=== PATIENT | female | born 1980 | race Caucasian/White ===

== ENCOUNTER 2016-05-05 21:10 | Emergency (ER) | payer OTHER, MEDICAID ==
[2016-05-05 21:23] VITALS: BP 113/73
[2016-05-05] MEDS ORDERED: Oseltamivir CAP* 75 MG PO ONE (22:00)
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
== END 2016-05-05 22:20 | disposition home or self-care (01) ==
LOC: UCEAST 21:10
DX: J11.1 Influenza due to unidentified influenza virus with other respiratory manifestations (principal); Z88.0 Allergy status to penicillin; Z87.891 Personal history of nicotine dependence; R10.9 Unspecified abdominal pain
CPT/HCPCS: 81002; 87086; 87502; 87651; 99212; A9270-GY; G0463

== ENCOUNTER 2016-09-09 02:33 | Inpatient (IN) | payer OTHER, MEDICAID ==
[2016-09-09] MEDS ORDERED: Sodium Citrate/Citric Acid* 15 ML UDC ONE (06:27)
[2016-09-09] MEDS ORDERED: ceFAZolin 2 GM PREMIX(*) 2 GM/50 ML BAG IVPB ONE (06:28)
[2016-09-09] MEDS ORDERED: Morphine PF AMP (0.5MG/ML)* 5 MG/10 ML AMP ONE (07:43)
[2016-09-09] MEDS ORDERED: Ondansetron INJ* 2 MG/ML VIAL ONE (07:46)
[2016-09-09] MEDS ORDERED: Ketorolac INJ* 30 MG/ML 1 ML VIAL ONE (07:46)
[2016-09-09] MEDS ORDERED: OXYTOCIN* 10 UNITS/ML 1 ML VIAL ONE (07:46)
[2016-09-09] MEDS ORDERED: DiMENhydriNATE IV* 50 MG/ML VIAL IV PUSH PRN (08:45)
[2016-09-09] MEDS ORDERED: HYDROmorphone* 1 MG/ML 1 ML SYR IV PRN (08:45)
[2016-09-09] MEDS ORDERED: oxyCODONE TAB* 5 MG TAB PO PRN (08:45)
[2016-09-09] MEDS ORDERED: Acetaminophen IV 1GM/100ML * 100 ML IVPB ONE (08:45)
[2016-09-09] MEDS ORDERED: Nalbuphine* 20 MG/ML 1 ML VIAL IV PRN (08:46)
[2016-09-09] MEDS ORDERED: Naloxone* 0.4 MG/ML 1 ML VIAL IV PRN (08:46)
[2016-09-09] MEDS ORDERED: Ondansetron INJ* 2 MG/ML VIAL IV PRN (08:46)
[2016-09-09] MEDS ORDERED: Witch Hazel PAD* JAR TOPICAL PRN (09:38)
[2016-09-09] MEDS ORDERED: Ibuprofen TAB* 600 MG PO PRN (09:38)
[2016-09-09] MEDS ORDERED: Glycerin ADULT SUPP PR PRN (09:38)
[2016-09-09] MEDS ORDERED: Dibucaine 1% 28.35 GM TUBE PR PRN (09:38)
[2016-09-09] MEDS ORDERED: Acetaminophen TAB* 325 MG PO PRN (09:38)
[2016-09-09] MEDS ORDERED: oxyCODONE TAB* 5 MG TAB ONE (10:46)
[2016-09-09] MEDS ORDERED: Ibuprofen TAB* 600 MG ONE (10:47)
[2016-09-09] MEDS ORDERED: Nalbuphine* 20 MG/ML 1 ML VIAL ONE (10:48)
[2016-09-09] MEDS: oxyCODONE/Acetamin 5/325 MG* TAB PO PRN ×4 (11:49→23:44)
[2016-09-09] MEDS: Nicotine Lozenge* 4 MG LOZENGE MT PRN ×4 (11:53→22:30)
[2016-09-09] MEDS: Simethicone CHEW TAB* 80 MG PO SCH ×3 (12:13→19:48)
[2016-09-09] MEDS: Docusate CAP* 100 MG PO SCH ×2 (13:53→19:48)
[2016-09-09] MEDS: Ibuprofen TAB* 600 MG PO SCH ×2 (17:15→23:44)
[2016-09-10] MEDS ORDERED: oxyCODONE/Acetamin 5/325 MG* TAB PO PRN
[2016-09-10] MEDS ORDERED: Zolpidem TAB* 5 MG PO PRN
[2016-09-10] MEDS: Nicotine Lozenge* 4 MG LOZENGE MT PRN ×3 (04:36→21:57)
[2016-09-10] MEDS: oxyCODONE/Acetamin 5/325 MG* TAB PO PRN ×6 (04:36→23:39)
--- NOTE | 2016-09-10 05:20 | OP ---
DATE OF OPERATION: 09/09/16 - ROOM #[id number] DATE OF : 82 SURGEON: Ruth Devries MD DIRECTOR OF ADMISSIONS: Vianney Phillips LM ANESTHESIOLOGIST: Mercedes Silverman MD ANESTHESIA: Spinal PRE-OP DIAGNOSIS: Di/Di twin intrauterine gestation at 37 and 6 weeks gestational age. Baby A in breech presentation. POST-OP DIAGNOSIS: Di/Di twin intrauterine gestation at 37 and 6 weeks gestational age. Baby A in breech presentation. OPERATIVE PROCEDURE: Primary low transverse section. ESTIMATED BLOOD LOSS: 700 mL. FLUIDS: Crystalloid. FINDINGS: Baby A female , Apgars of 9 and 9, weight 5 pounds 6 ounces. Baby B female , Apgars 9 and 9, weight 4 pounds 13 ounces. Normal appearing placenta. Normal appearing uterus, ovaries and tubes. DESCRIPTION OF PROCEDURE: After informed consent was signed, the patient was taken to the operating room where she was given a spinal anesthesia that was later found to be adequate. A Alvarado catheter was introduced into her bladder. SCDs were placed on her legs. She was then prepped and draped in the dorsal supine position with a leftward tilt. A time-out was performed. A Pfannenstiel skin incision was then made with a scalpel and carried down to the underlying layer of fascia with the scalpel. The fascia was incised on either side of the midline and the fascial incision extended laterally with Valdovinos scissors. The inferior edge of the fascial incision was grasped with Lyndsey clamps, tented up, and dissected down with sharp dissection. Then, the superior edge of the fascial incision was grasped with Lyndsey clamps, tented up , and dissected down with sharp dissection with Valdovinos scissors. The rectus muscles were in the midline and the peritoneum was entered bluntly. The peritoneal incision was extended laterally with blunt pressure. A bladder blade was inserted and a transverse incision was made in the lower uterine segment with the scalpel. The uterine incision was extended superiorly and inferiorly with blunt pressure. Baby A was found to be in breech presentation. The buttocks were delivered followed by the legs and torso and then the arms rotated internally, finally followed by the delivery of the head in a flexed presentation. The cord was milked towards the baby and then clamped x2 and cut , and the baby was handed to the air table operator. The baby B was found to be in complete breech presentation. The feet were then grasped and brought to the incision and delivered, followed by the body. Arms internally rotated and the head in a flexed presentation. The cord was milked towards the baby and then clamped x2 and cut, and the baby was handed to the air table operator. The placentas were then delivered with fundal massage and gentle cord traction. The uterus was exteriorized and cleared of clots and debris. The uterine incision was then closed with 0 Vicryl in a running locked fashion with a second layer of suture imbricating the first. The abdomen was irrigated and the uterus was placed back in the abdominal cavity. The incision was inspected and good hemostasis was noted. The peritoneum was closed with 3-0 chromic in a running unlocked fashion. The fascia was closed with 0 Vicryl in a running unlocked fashion. Good hemostasis was noted in the subcuticular layer and two interrupted sutures of 3-0 Chromic were placed to reapproximate the subcuticular layer. The skin was then closed with 4-0 Monocryl in a running subcuticular fashion. The incision was cleaned. Mastisol and Steri- Strips were placed. The dressing was placed. The patient was then moved to the stretcher, and taken to the recovery room in stable condition. [id number]/[facility] #: [id number] FABIAN
[2016-09-10] MEDS: Ibuprofen TAB* 600 MG PO PRN ×3 (06:20→19:36)
[2016-09-10 07:03] LABS: Hematocrit 32 % (35-47); Hemoglobin 10.6 g/dl (12.0-16.0); Mean Corpuscular HGB Conc 33 g/dl (31-36); Mean Corpuscular Hemoglobin 27 pg (27-31); Mean Corpuscular Volume 83 fL (80-97); Mean Platelet Volume 10 um3 (7.4-10.4); Red Blood Count 3.91 10^6/ul (4.0-5.4); Red Cell Distribution Width 14 % (10.5-15); White Blood Count 13.7 10^3/ul (3.5-10.8)
[2016-09-10 07:13] LABS: Add Diff/Slide Review? Slide Review Added; Comments Flag Yes
[2016-09-10 08:08] LABS: Platelet Morphology Large; RBC Morphology Normal (Normal)
[2016-09-10] MEDS: Simethicone CHEW TAB* 80 MG PO SCH ×4 (08:39→20:51)
[2016-09-10] MEDS: Docusate CAP* 100 MG PO SCH ×3 (08:40→20:51)
[2016-09-10] MEDS ORDERED: Ferrous Gluconate TAB* 324 MG TAB PO SCH (09:00)
[2016-09-10] MEDS: Famotidine TAB* 20 MG PO SCH (20:51)
[2016-09-11] MEDS: Ibuprofen TAB* 600 MG PO PRN ×3 (01:36→16:09)
[2016-09-11] MEDS: oxyCODONE/Acetamin 5/325 MG* TAB PO PRN ×2 (05:17→19:43)
[2016-09-11] MEDS: Simethicone CHEW TAB* 80 MG PO SCH ×4 (07:49→21:04)
[2016-09-11] MEDS: Nicotine Lozenge* 4 MG LOZENGE MT PRN ×3 (07:49→21:03)
[2016-09-11] MEDS: Docusate CAP* 100 MG PO SCH ×3 (09:51→21:04)
[2016-09-11] MEDS: Famotidine TAB* 20 MG PO SCH ×2 (09:51→21:04)
[2016-09-11] MEDS: Gabapentin CAP(*) 300 MG PO SCH ×2 (14:59→21:03)
[2016-09-12] MEDS: Ibuprofen TAB* 600 MG PO PRN ×2 (00:01→08:38)
[2016-09-12] MEDS: oxyCODONE/Acetamin 5/325 MG* TAB PO PRN ×3 (00:59→12:40)
[2016-09-12 06:27] VITALS: BP 138/71
[2016-09-12] MEDS: Docusate CAP* 100 MG PO SCH (08:38)
[2016-09-12] MEDS: Famotidine TAB* 20 MG PO SCH (08:39)
[2016-09-12] MEDS: Nicotine Lozenge* 4 MG LOZENGE MT PRN (08:39)
[2016-09-12] MEDS: Simethicone CHEW TAB* 80 MG PO SCH (08:39)
[2016-09-12] MEDS: Gabapentin CAP(*) 300 MG PO SCH (08:40)
== END 2016-09-12 13:11 | disposition home or self-care (01) | DRG 765 ==
LOC: UNDOADMIN 02:33 → MCHOB 02:33
PROVIDERS: ADMIT Obstetrics & Gynecology; ATTEND Obstetrics & Gynecology
PROC: 10D00Z1 Extraction of Products of Conception, Low, Open Approach (ICD-10-PCS; principal; 2016-09-09 07:45)
DX: O32.1XX1 Maternal care for breech presentation, fetus 1 (principal); O30.043 Twin pregnancy, dichorionic/diamniotic, third trimester; Z37.2 Twins, both liveborn; O32.1XX2 Maternal care for breech presentation, fetus 2; O99.824 Streptococcus B carrier state complicating childbirth; Z3A.37 37 weeks gestation of pregnancy
CPT/HCPCS: 36415; 76815; 85025; A9270-GY; J0690; J1240; J1885; J2300; J2405; J2590

== ENCOUNTER 2017-01-09 04:07 | Emergency (ER) | payer OTHER, MEDICAID ==
[2017-01-09] MEDS ORDERED: Ibuprofen TAB* 600 MG ONE (04:42)
[2017-01-09] MEDS ORDERED: Ibuprofen TAB* 600 MG PO ONE (04:42)
[2017-01-09] MEDS ORDERED: traMADol TAB* 50 MG ONE (06:14)
[2017-01-09] MEDS ORDERED: traMADol TAB* 50 MG PO ONE (06:14)
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
[2017-01-09 07:06] VITALS: BP 119/87
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
== END 2017-01-09 07:09 | disposition home or self-care (01) ==
LOC: ED 04:07
DX: S13.9XXA Sprain of joints and ligaments of unspecified parts of neck, initial encounter (principal); R10.9 Unspecified abdominal pain; R51 Headache; R07.9 Chest pain, unspecified; M54.9 Dorsalgia, unspecified; M54.2 Cervicalgia; M25.532 Pain in left wrist; M25.531 Pain in right wrist; F17.210 Nicotine dependence, cigarettes, uncomplicated; Y09 Assault by unspecified means; Y93.9 Activity, unspecified; Y92.9 Unspecified place or not applicable
CPT/HCPCS: 70450; 72050; 99283; A9270-GY

== ENCOUNTER 2017-01-10 23:53 | Emergency (ER) | payer OTHER, MEDICAID ==
[2017-01-11] MEDS ORDERED: Ondansetron ODT TAB* 4 MG PO ONE (02:14)
[2017-01-11 02:24] VITALS: BP 136/80
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
== END 2017-01-11 02:23 | disposition home or self-care (01) ==
LOC: ED 23:53
DX: S06.0X9A Concussion with loss of consciousness of unspecified duration, initial encounter (principal); R51 Headache; R05 Cough; H53.8 Other visual disturbances; R11.2 Nausea with vomiting, unspecified; F17.210 Nicotine dependence, cigarettes, uncomplicated; Y09 Assault by unspecified means; Y93.9 Activity, unspecified; Y92.9 Unspecified place or not applicable; Z33.1 Pregnant state, incidental
CPT/HCPCS: 99282

== ENCOUNTER 2017-06-07 14:54 | Emergency (ER) | payer OTHER ==
[2017-06-07 15:28] VITALS: BP 131/76
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
== END 2017-06-07 16:06 | disposition home or self-care (01) ==
LOC: UCEAST 14:54
DX: R22.0 Localized swelling, mass and lump, head (principal); R51 Headache; F17.210 Nicotine dependence, cigarettes, uncomplicated; Z88.3 Allergy status to other anti-infective agents
CPT/HCPCS: 99212; G0463

== ENCOUNTER → 2017-06-07 17:05 | Emergency (ER) | payer OTHER ==
[~2017-06-07 17:05] MED LIST: Clindamycin CAP* 150 MG PO ONE; Iohexol 300* (CONTRAST) 10 ML SDV IV ONE
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
[2017-06-07 18:42] LABS: ABS Basophils 0.1 10^3/ul (0-0.2); ABS Eosinophils 0.1 10^3/ul (0-0.6); ABS Lymphocytes 1.9 10^3/ul (1.0-4.8); ABS Monocytes 0.5 10^3/ul (0-0.8); ABS Neutrophils 6.5 10^3/ul (1.5-7.7); ABS Nucleated RBC 0 10^3/ul; Eosinophil % 1.2 % (0-6); Hematocrit 46 % (35-47); Hemoglobin 15.5 g/dl (12.0-16.0); Lymphocyte % 21.1 % (25-47); Mean Corpuscular HGB Conc 34 g/dl (31-36); Mean Corpuscular Hemoglobin 30 pg (27-31); Mean Corpuscular Volume 88 fL (80-97); Mean Platelet Volume 8 um3 (7.4-10.4); Nucleated Red Blood Cells % 0; Platelet Count 328 10^3/ul (150-450); Red Blood Count 5.21 10^6/ul (4.0-5.4); Red Cell Distribution Width 15 % (10.5-15)
[2017-06-07 19:02] LABS: EGFR Non-African American 101.9 (>60)
--- NOTE | 2017-06-07 20:02 | RAD ---
HISTORY: Left-sided facial swelling COMPARISONS: None TECHNIQUE: Multiple contiguous axial CT scans were obtained of the face with intravenous contrast, with coronal and sagittal multiplanar reformations. FINDINGS: BONES: There is no displaced fracture or dislocation. The orbital rim is intact. The zygomatic arch is intact. The pterygoid plates are intact. ORBITS: The globes are round. The optic nerves are symmetric. The extraocular musculature is normal. There is no post septal or intraconal inflammatory change. There is no retrobulbar hematoma. PARANASAL SINUSES: The paranasal sinuses are clear. BRAIN AND SOFT TISSUE: There is straightening of the subcutaneous fat along the left mandibular body. There is no appreciable loculated fluid collection. OTHER: None. IMPRESSION: THERE IS INFLAMMATORY CHANGE ALONG THE LEFT MANDIBLE, SUGGESTIVE OF CELLULITIS, WITHOUT LOCULATED FLUID COLLECTION TO SUGGEST ABSCESS
[2017-06-07 20:41] VITALS: BP 142/87
== END | disposition home or self-care (01) ==
LOC: ED 17:05
DX: K11.5 Sialolithiasis (principal); R22.0 Localized swelling, mass and lump, head; Z32.02 Encounter for pregnancy test, result negative; Z87.442 Personal history of urinary calculi; F41.9 Anxiety disorder, unspecified; F32.9 Major depressive disorder, single episode, unspecified; Z88.1 Allergy status to other antibiotic agents; F17.210 Nicotine dependence, cigarettes, uncomplicated
CPT/HCPCS: 36415; 70487; 80053; 84702; 85025; 99282; A9270-GY; Q9967

== ENCOUNTER 2017-08-23 17:28 | Emergency (ER) | payer OTHER ==
[2017-08-23 17:40] VITALS: BP 137/74
[2017-08-23] MEDS ORDERED: Azithromycin TAB* 250 MG PO ONE (17:45)
[2017-08-23] MEDS ORDERED: Ondansetron ODT TAB* 4 MG PO ONE (17:46)
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
== END 2017-08-23 18:00 | disposition home or self-care (01) ==
LOC: UCEAST 17:28
DX: N89.8 Other specified noninflammatory disorders of vagina (principal); Z20.2 Contact with and (suspected) exposure to infections with a predominantly sexual mode of transmission; F98.8 Other specified behavioral and emotional disorders with onset usually occurring in childhood and adolescence; F32.9 Major depressive disorder, single episode, unspecified; Z88.0 Allergy status to penicillin; Z82.49 Family history of ischemic heart disease and other diseases of the circulatory system; Z83.3 Family history of diabetes mellitus; Z80.9 Family history of malignant neoplasm, unspecified; F17.210 Nicotine dependence, cigarettes, uncomplicated
CPT/HCPCS: 99212; A9270-GY; G0463

== ENCOUNTER 2017-10-21 10:25 | Emergency (ER) | payer OTHER ==
[2017-10-21 10:31] VITALS: BP 125/80
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
== END 2017-10-21 11:50 | disposition home or self-care (01) ==
LOC: UCEAST 10:25
DX: K11.20 Sialoadenitis, unspecified (principal); Z88.0 Allergy status to penicillin; F17.210 Nicotine dependence, cigarettes, uncomplicated
CPT/HCPCS: 87651; 99212; G0463

== ENCOUNTER 2018-02-19 17:54 | Emergency (ER) | payer OTHER ==
[2018-02-19 18:02] VITALS: BP 122/69
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
[2018-02-19] MEDS ORDERED: Neomyc/Polym/HC 1% OTIC SUSP* **OTIC LEFT EAR ONE (18:12)
[2018-02-19] MEDS ORDERED: Ibuprofen TAB* 400 MG PO ONE (18:14)
== END 2018-02-19 18:26 | disposition home or self-care (01) ==
LOC: UCEAST 17:54
DX: H60.92 Unspecified otitis externa, left ear (principal); H92.02 Otalgia, left ear; Z88.0 Allergy status to penicillin; F17.210 Nicotine dependence, cigarettes, uncomplicated
CPT/HCPCS: 99212; A9270-GY; G0463

== ENCOUNTER 2018-04-02 20:11 | Emergency (ER) | payer OTHER ==
[2018-04-02 20:20] VITALS: BP 141/81
[2018-04-02] MEDS ORDERED: Neomyc/Polym/HC 1% OTIC SUSP* **OTIC LEFT EAR ONE (20:26)
[2018-04-02] MEDS ORDERED: Cephalexin CAP* 500 MG PO ONE (20:27)
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
== END 2018-04-02 20:33 | disposition home or self-care (01) ==
LOC: UCEAST 20:11
DX: H66.92 Otitis media, unspecified, left ear (principal); Z88.0 Allergy status to penicillin; Z88.1 Allergy status to other antibiotic agents; F17.290 Nicotine dependence, other tobacco product, uncomplicated
CPT/HCPCS: 99212; A9270-GY; G0463

== ENCOUNTER 2018-06-02 10:34 | Emergency (ER) | payer SELFPAY ==
--- OUTSIDE RECORDS SUMMARY | 2018-06-02 10:39 | XMS REPORT | Continuity of Care Document ---
:1980 External Reference #:[id number] Author Name Jose Shields M.D. Address [address] [place] [address] Care Team Providers Name Role Phone Jose Shields M.D. Care Team Information Industrial Safety And Health Manager Unavailable Payers Date Identification Numbers Payment Provider Subscriber Policy Number: [id number] [employer] [place] Acuña Group Number: [id number] [facility] [id number] Group Name: [id number] [place] [address] PayID: [id number] Advance Directives Description No Information Available Problems Description No Information Family History Date Family Member(s) Observation Comments General Cancer General Diabetes Mother Cancer Mother Migraine Social History Type Date Description Comments Sex Unknown Occupation [employer] Tobacco Use Start: Unknown Current Cigarette Smoker 5-10 Cigarettes Daily Tobacco Use Start: Unknown Never Smoked Cigars Tobacco Use Start: Unknown Never Smoked A Pipe Smokeless Tobacco Former Smokeless Tobacco User, Used Occasionally Smokeless Tobacco on and off for 8 years, quit about 4 months ago ETOH Use Denies alcohol use Tobacco Use Start: Unknown Patient is a current smoker, smokes every day Smoking Status Reviewed: 05/08/18 Patient is a current smoker, smokes every day Allergies, Adverse Reactions, Alerts Date Description Reaction Status Severity Comments 04/21/2016 Amoxicillin Active 04/18/2018 Clindamycin Active Medications Medication Date Status Form Strength Qnty SIG Indications Ordering Provider Gabapentin Active Tablets 300mg 1-3 tabs Unknown 000 daily Vyvanse Active Capsules 70mg 1 tab daily Unknown 000 Augmentin Hx Tablets 875-125mg 20tabs take 1 tab Jose Arce - 2 times a Alyson day for 10 , M.D. 019 days has taken without reaction Prednisone Hx Tablets 10mg 21tabs 4 tabs po Jose Arce - every day Strominger x3 d, then , M.D. 019 2 tabs po every day x3d, then 1 tab po qd x3d, then off Mupirocin Hx Ointment 2% 45gm apply Jose Suarez 019 - topically Strominger to affected , M.D. 019 area three times a day for a week. Butalbital/Ac Hx Tablets 50-325-40m Unknown etaminophen/C 000 - g affeine 019 Hx Unknown 000 - 019 Colace Hx Unknown 000 - 019 Immunizations Description No Information Available Vital Signs Date Vital Result Comment 04/18/2018 2:51pm Weight 180.00 lb Weight 81.648 kg Height 63 inches 5'3" Height in cm's 160.0 cm BMI (Body Mass Index) 31.9 kg/m2 04/21/2016 1:56pm BP Systolic 101 mmHg BP Diastolic 65 mmHg Heart Rate 95 /min Respiratory Rate 17 /min Weight 207.00 lb Weight 93.895 kg Height 63 inches 5'3" Height in cm's 160.0 cm BMI (Body Mass Index) 36.7 kg/m2 Results Test Date Facility Test Result H/L Range Note Wound 04/18/2018 [facility] Wound/Misc SEE RESULT 1, 2 Culture/Sensi c/o Department of Laboratories Culture[place] [address] Stain [phone] 1 [id number] 2 SEE RESULT BELOW Name: ODESSA ACUÑA : [address]: Lela Tinsley PA-C Acct: [id number] Unit: [id number] AGE: 37 Location: [facility] Re04/18/18 SEX: F Status: REG REF SPEC: [id number] [place]: 04/18/18-[address]: Lela Marina REQ: [id number] RECD: 04/19/18 STATUS: COMP _ SOURCE: [facility] SOUR SPDESC:NOS ORDERED: Culture Stain COMMENTS: [id number] Specimen Description LEFT EXTERNAL EAR Procedure Result Reported Site Wound/Misc Gram Stain Final 04/19/18- 1511 ML 2+ Epithelial Cells 2+ Neutrophils 3+ Gram Positive Cocci Wound/Misc Culture Final 04/21/18- 1330 ML Organism 1 STAPHYLOCOCCUS AUREUS Quantity 3+ 1. STAPHYLOCOCCUS AUREUS M.I.C. RX --------- ------ Penicillin >=0.5 R Clindamycin <=0.25 S Erythromycin >=8 R Gentamicin <=0.5 S Linezolid 2 S Oxacillin 0.5 S * Quinupristin/Dalfopristin 0.5 S Rifampin <=0.5 S Tetracycline <=1 S Doxycycline - Deduced S * Minocycline - Deduced S Trimethoprim/Sulfamethoxazole <=10 S Vancomycin 1 S Imipenem-Deduced S * Ampicillin/Sulbactam-Deduced S CONTINUED ON NEXT PAGE DEPARTMENT OF PATHOLOGY, [address] [place] [address] Sigifredo Harkins M.D. Director [facility] # [id number] Patient: ODESSA ACUÑA [id number] (Continued) Specimen: [id number] Collected: 04/18/18-1524 Received: 04/19/18-115 (Continued) Procedure Result Reported Site Wound/Misc Culture Final (continued) 04/21/18- 1330 1. STAPHYLOCOCCUS AUREUS (continued) M.I.C. RX --------- ------ Cefazolin-Deduced S * These antibiotics are not available in the [facility] Formulary Contact the Microbiology Department for any additional antibiotic reporting. * ML - Main Lab . END OF REPORT DEPARTMENT OF PATHOLOGY, [address] [place] [address] Sigifredo Harkins M.D. 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 I don't know what this is. It has been there for a year fluctuating in size. It appears too anterior for a parotid process and is above the submandibular gland. Her oral cavity is normal, but she does have a cracked second molar on the left mandible. I am getting a CT soft tissue neck with contrast.
[2018-06-02 10:43] VITALS: BP 121/79
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
== END 2018-06-02 11:15 | disposition home or self-care (01) ==
LOC: UCEAST 10:34
DX: M79.10 Myalgia, unspecified site (principal); F17.210 Nicotine dependence, cigarettes, uncomplicated; Z88.1 Allergy status to other antibiotic agents; Z88.2 Allergy status to sulfonamides; V49.40XA Driver injured in collision with unspecified motor vehicles in traffic accident, initial encounter; Y92.9 Unspecified place or not applicable
CPT/HCPCS: 99211; G0463

== ENCOUNTER → 2018-07-21 11:43 | Day surgery (SDC) | payer SELFPAY ==
[~2018-07-21 11:43] MED LIST changes: +Acetaminophen TAB* 325 MG ONE; +Acetaminophen TAB* 325 MG PO ONE; +Acetaminophen TAB* 325 MG PO PRN; +Buffered Lidocaine 1% SYRIN* 1 ML/SYRINGE INTRADERM ONE; +Chlorhexidine MW 0.12% 473ML* STOCK BOTTLE * USE UNIT DOSE ONE; +Ciprofloxacin 400MG IVPREMIX(* 400 MG/200 ML BAG ONE; +Cisatracurium* 2 MG/ML MDV 5 ML ONE; -Clindamycin CAP* 150 MG PO ONE; +Dexamethasone IV* 4 MG/ML 1 ML (4 MG) ONE; +DiMENhydriNATE IV* 50 MG/ML VIAL IV PUSH PRN; +Famotidine IV* 10 MG/ML 2 ML (20 mg) ONE; +HYDROcodone/ACET. 7.5/325 LIQ* 15 ML UDC ONE; +HYDROcodone/ACETAMIN 5-325 MG* 1 TAB PO PRN; +Ibuprofen TAB* 400 MG ONE; -Iohexol 300* (CONTRAST) 10 ML SDV IV ONE; +Lactated Ringers 1000 ML Bag* 1,000 ML IV SCH; +Levalbuterol 1.25MG/0.5ML NEB INH PRN; +Lidocain 1% EPI 1:100,000 * 30 ML MDV ONE; +Lidocaine 2% PF * 5 ML VIAL ONE; +Midazolam* 1 MG/ML 2 ML VIAL (2 MG) ONE; +Naloxone* 0.4 MG/ML 1 ML VIAL IV PRN; +Ondansetron INJ* 2 MG/ML VIAL IV PRN; +Ondansetron INJ* 2 MG/ML VIAL ONE; +PROCHLORPERAZINE INJ 5 MG/ML 2 ML VIAL IV PRN; +Propofol* 10 MG/ML 20 ML BTL ONE; +Succinylcholine* 20 MG/ML 10 ML VIAL ONE; +fentaNYL* 50 MCG/ML 2 ML VIAL (100 MCG VIAL) ONE; +metroNIDAZOLE IV 500 MG/100ML* 500 MG/100 ML BAG IVPB ONE
[2018-07-21] MEDS: fentaNYL* 50 MCG/ML 2 ML VIAL (100 MCG VIAL) IV PRN ×2 (16:02→16:07)
[2018-07-21 17:04] VITALS: BP 135/91
--- NOTE | 2018-07-21 23:37 | OP ---
DATE OF OPERATION: 07/21/18 - SDS DATE OF : [birth year] SURGEON: Jose Shields MD PRE-OP DIAGNOSES: Impacted third molar, left upper maxilla; facial cellulitis from a maxillary cyst. POST-OP DIAGNOSIS: Impacted third molar, left upper maxilla; facial cellulitis from a maxillary cyst. OPERATIVE PROCEDURE: Extraction of left upper third molar with curettage of maxillary cyst under general endotracheal anesthesia. COMPLICATIONS: None. DISPOSITION: Good. SPECIMEN: None. BLOOD LOSS: Minimum. DESCRIPTION OF PROCEDURE: The patient was taken to the operating room and placed on a supine position on the operating table, general anesthesia induced and she was orotracheally intubated, turned and draped for surgery. A pack was placed in her throat and the mouth clamp was used to keep her mouth open. In the posterior left maxilla, along the posterior alveolar ridge around the third molar and anterior molar cheeses, she was injected with 1% lidocaine with 1:100, 000 epinephrine. A circumdental incision was made around the last visible tooth and extended along the alveolar ridge posteriorly. The #9 elevator was used to elevate the mucosa off of the bone and thus exposing the impacted third molar. Using the dental elevator, the tooth was loosened and then grasped with the double-pronged tooth extractor and the tooth was grasped and removed. The cyst was curettaged with a curette. The wound was irrigated with chlorhexidine mouthwash. The incision was closed with a 3-0 chromic. The throat pack was removed; some more chlorhexidine was irrigated and suctioned. The patient tolerated this procedure well with no complications, transferred to the recovery room in stable condition. [id number] #: [id number] MTDD
== END | disposition home or self-care (01) ==
LOC: OR 11:43
PROVIDERS: ATTEND Otolaryngology
DX: M27.40 Unspecified cyst of jaw (principal); K01.1 Impacted teeth; Z72.0 Tobacco use
CPT/HCPCS: 81025; A9270-GY; J0330; J0744; J1100; J2250; J2405; J2704; J3010; J3490

== ENCOUNTER 2018-07-23 11:59 | Emergency (ER) | payer SELFPAY ==
--- OUTSIDE RECORDS SUMMARY | 2018-07-23 12:21 | XMS REPORT | Continuity of Care Document ---
:1980 External Reference #:[id number] Author Name Jose Shields M.D. 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 Care Team Information Public Improvement Inspector Unavailable Payers Date Identification Numbers Payment Provider Subscriber Policy Number: [id number] [employer] Group Number: [id number] [facility] [id number] Group Name: [id number] [place] [address] PayID: [id number] Advance Directives Description No Information Available Problems Description No Information Family History Date Family Member(s) Observation Comments General Cancer General Diabetes Mother Cancer Mother Migraine Social History Type Date Description Comments Sex Unknown Occupation [employer] Tobacco Use Start: Unknown Current [...] smoker, smokes every day Smoking Status Reviewed: 07/18/18 Patient is a current smoker, smokes every day Allergies, Adverse Reactions, Alerts Active Allergies Reaction Severity Comments Date Amoxicillin 04/21/2016 Clindamycin 04/18/2018 Medications Active Medications SIG Qnty Indications Ordering Provider Date Oxycodone HCL 1 to 2 by mouth 14tabs M27.40 Jose Suarez 07/19/2018 5mg every 4 hours as Bárbara Shields Tablets needed pain. Gabapentin 1-3 tabs daily Unknown 300mg Tablets Vyvanse 1 tab daily Unknown 70mg Capsules History Medications Augmentin take 1 tab 2 times 20tabs Jose BlankenshipZackery 04/18/2018 - 875-125mg a day for 10 days Bárbara Shields 05/01/2018 Tablets has taken without reaction Prednisone 4 tabs po every 21tabs Jose BlankenshipZackery 04/18/2018 - 10mg day x3 d, then 2 Bárbara Shields 05/01/2018 Tablets tabs po every day x3d, then 1 tab po qd x3d, then off Mupirocin apply topically to 45gm Jose BlankenshipZackery 04/18/2018 - 2% affected area Bárbara Shields 05/08/2018 Ointment three times a day for a week. Butalbital/Acetamin Unknown - ophen/Caffeine 04/17/2018 50-325-40mg Tablets Unknown - 04/17/2018 Colace Unknown - 04/17/2018 Immunizations Description No Information Available Vital Signs Date Vital Result Comment 07/19/2018 1:42pm BP Systolic 132 mmHg BP Diastolic 77 mmHg Heart Rate 85 /min Respiratory Rate 17 /min Weight 197.00 lb Weight 89.359 kg Height 63 inches 5'3" Height in cm's 160.0 cm BMI (Body Mass Index) 34.9 kg/m2 06/13/2018 3:24pm Weight 180.00 lb Weight 81.648 kg Height 63 inches 5'3" Height in cm's 160.0 cm BMI (Body Mass Index) 31.9 kg/m2 04/18/2018 2:51pm Weight 180.00 lb Weight 81.648 [...] Test Result H/L Range Note Wound 04/18/2018 [facility] Wound/Misc SEE RESULT 1, 2 Culture/Sensi c/o Department of Laboratories [place] [address] Stain [phone] 1 [id number] 2 SEE RESULT BELOW Name: ODESSA ACUÑA : [address]: Lela Tinsley PA-C Acct: [id number] Unit: [id number] AGE: 37 Location: [facility] Re04/18/18 SEX: F Status: REG REF SPEC: [id number] [place]: 04/18/[address] [facility] [address]: Lela Marina REQ: [id number] RECD: 04/19/18 STATUS: COMP _ SOURCE: MISC SOURC SPDESC:NOS ORDERED: Culture Stain COMMENTS: [id number] Specimen Description LEFT EXTERNAL EAR Procedure Result [...] CONTINUED ON NEXT PAGE DEPARTMENT OF PATHOLOGY, [address] [place] [address] Sigifredo Harkins M.D. Director [facility] # [id number] Patient: ODESSA ACUÑA [id number] (Continued) Specimen: [id number] Collected: 04/18/18 Received: 04/19/18614 (Continued) Procedure Result Reported Site Wound/Misc Culture Final (continued) 04/21/18- 1330 1. STAPHYLOCOCCUS AUREUS (continued) M.I.C. RX --------- ------ Cefazolin-Deduced S * These antibiotics are not available in the [facility] Formulary Contact the Microbiology Department for any additional antibiotic reporting. * ML - Main Lab . END OF REPORT DEPARTMENT OF PATHOLOGY, [address] [place] [address] Sigifredo Harkins M.D. Director [facility] # [id number] Procedures Date Code Description Status 04/21/2016 15168 Fiberoptic Laryngoscopy Completed Encounters Type Date Location Provider Dx Diagnosis Office Visit 07/19/2018 [place] Jose Suarez M27.40 Unspecified cyst of 1:30p 03/21/07 Bárbara Shields jaw Office Visit 06/13/2018 [place] Jose Suarez R22.1 Localized swelling, 3:15p 03/21/07 Bárbara Shields mass and lump, neck K04.7 Periapical abscess without sinus Office Visit 05/08/2018 [place] Jose Suarez R22.1 Localized 3:15p 03/21/07 Bárbara Shields swelling, mass and lump, neck Office Visit 04/18/2018 [facility] Lela Tinsley, H60.8x2 Other otitis 2:45p 03/21/07 PA-C externa, left ear 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 at [facility] O R007/19/2018 - Jose Shields M.D.M27.40 Unspecified cyst of jawNew Medication:Oxycodone HCL 5 mg - 1 to 2 by mouth every 4 hours as needed pain.Comments:The patient has a left upper maxillary cyst at the root of the last upper molar on that side. The plan is for tooth extraction with excision of left maxillary cyst. She understands the small risk of numbness, creating an oromaxillary fistula that would need to be repaired, bleeding and infection and facial numbness. I will want her to use some chlorhexidine rinsing postoperatively.I will need the oral surgery set and a drill for this surgery. I may use some bone.
[2018-07-23] MEDS ORDERED: Bacitracin OINTMENT* 0.5% 0.5 oz TUBE TOPICAL ONE (12:34)
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
[2018-07-23 15:38] VITALS: BP 123/87
== END 2018-07-23 15:36 | disposition home or self-care (01) ==
LOC: ED 11:59
DX: K08.409 Partial loss of teeth, unspecified cause, unspecified class (principal); R60.0 Localized edema; Z88.0 Allergy status to penicillin; F17.210 Nicotine dependence, cigarettes, uncomplicated; R51 Headache
CPT/HCPCS: 99282

== ENCOUNTER 2019-05-24 09:37 | Emergency (ER) | payer OTHER ==
--- OUTSIDE RECORDS SUMMARY | 2019-05-24 10:18 | XMS REPORT ---
:1980 Author Organization [facility] Care Team Providers Name Role Phone MIGUEL BALDWIN Primary Care Physician Unavailable Allergies, Adverse Reactions, Alerts Allergy Code CodeSystem Reaction Severity Criticality Status Start Substance Date Moderate Medications Medication Medication Medication Start Stop Route Dose Status Fill Code CodeSystem Date Date Instructions GABAPENTIN RxNorm 2018-05 active for 30 300 MG CAPS -07 day(s) VYVANSE 70 RxNorm 2018-05 active for 30 MG CAPS -07 day(s) gabapentin 979412 RxNorm 2018-09 2019- oral 300 mg 2 completed 2 to 3 -07 28- to 3 capsule capsule three times a three day for 30 times a day(s) day gabapentin 302315 RxNorm 2018-06 2019- oral 300 mg 3 completed Take 3 - 06- capsule capsule by three mouth three times a times a day day for 30 day(s) Vyvanse 225392 RxNorm 2018-06 2019- oral 70 mg 1 completed 1 capsule -11 23-09 capsule once a day once a for 30 day(s) day Problems Problem Code CodeSystem Alternate Alternate Start End Status Narrative Name Code CodeSystem Date Date 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-CT 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, 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 Cannabis 2951144 SNOMED-CT 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, 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 Cocaine 3156207 SNOMED-CT 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, 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 Tobacco 85969275 SNOMED-CT 2018-05 Active use -26 Panic 77342971 SNOMED-CT 2018-05 Active disorder -22 Panic 76222705 SNOMED-CT 2018-05 Active disorder -22 Tobacco 58919078 SNOMED-CT 2018-05 Active use -26 Cannabis 9149864 SNOMED-CT 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, 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 Relevant diagnostic tests/laboratory data Narrative No Information Procedures Procedure Code CodeSystem Target Date of Status Service Device Device Device Name Site Procedure Delivery Code Name UID Location Psychotherap [id number] SNOMED-CT () 2018-07-24 complete Mental y, 45 04 d Health- minutes with [facility] patient [address], [id number] [phone] Psychotherap [id number] SNOMED-CT () 2018-08-16 complete Mental y, 45 04 d Health- minutes with [facility] patient [address], [id number] [phone] Psychotherap [id number] SNOMED-CT () 2018-09-20 complete Mental y, 45 04 d Health- minutes with [facility] patient [address], [id number] [phone] Psychotherap [id number] SNOMED-CT () 2018-10-11 complete Mental y, 45 04 d Health- minutes with [facility] patient [address], [id number] [phone] Psychotherap [id number] SNOMED-CT () 2018-12-26 complete Mental y, 45 04 d Health- minutes with [facility] patient [address], [id number] [phone] Office or [id number] SNOMED-CT () 2018-07-26 complete Mental other 8 d Health- outpatient [facility] visit for [address], established [phone] patient, [id number] which requires at least 2 of these 3 rawls components: A detailed history; A detailed examination; Medical decision making of moderate complexity. Counseling and/o Office or [id number] SNOMED-CT () 2018-07-20 complete Mental other 8 d Health- outpatient [facility] visit for [address], established [phone] patient, [id number] which requires at least 2 of these 3 rawls components: A detailed history; A detailed examination; Medical decision making of moderate complexity. Counseling and/o SNOMED-CT () 2019-02-08 complete Public d Health- [address], [address] [phone] SNOMED-CT () 2019-02-01 complete Public d [address], [address] [phone] SNOMED-CT () 2019-01-25 complete Public [address], [address] [phone] SNOMED-CT () 2019-04-[address], [address] [phone] SNOMED-CT () 2019-03-29 complete Public [address], [address] [phone] SNOMED-CT () 2019-03-[address], [address] [phone] SNOMED-CT () 2019-03-[address], [address] [phone] SNOMED-CT () 2019-03-01 complete Public [address], [address] [phone] SNOMED-CT () 2018-06-[address], [id number] [phone] Encounters/Encounter Diagnoses Encounter Name Encounter Diagnosis Diagnosis Diagnosis Date of Service Code Code Name CodeSystem Diagnosis Delivery Location [facility] [address] SNOMED-CT 2018-12-26 Behavioral Individual [facility] [address] [place], [place], [phone] Vital Signs No Information Social History Element Description Description Start End Code CodeSystem AdditionalInfo Date Date SexAssignedAtBirth Female 1980-0 F AdministrativeGender 11-14 Hospital Discharge Instructions Reason For Referral Medical Equipment FDA Assessments
--- OUTSIDE RECORDS SUMMARY | 2019-05-24 10:18 | XMS REPORT ---
:1980 Author Organization [facility] Care Team Providers Name Role Phone MIGUEL BALDWIN Primary Care Physician Unavailable Allergies, Adverse Reactions, Alerts Allergy Code CodeSystem Reaction Severity Criticality Status Start Substance Date Moderate Medications Medication Medication Medication Start Stop Route Dose Status Fill Code CodeSystem Date Date Instructions VYVANSE 70 RxNorm 2018-05 active for 30 MG CAPS -07 day(s) GABAPENTIN RxNorm 2018-05 active for 30 300 MG CAPS -07 day(s) Vyvanse 699670 RxNorm 2018-06 2019- oral 70 mg 1 completed 1 capsule -11 23- capsule once a day once a for 30 day(s) day gabapentin 912999 RxNorm 2018-06 2019- oral 300 mg 3 completed Take 3 -11 24- capsule capsule by three mouth three times a times a day day for 30 day(s) gabapentin 138415 RxNorm 2018-09 2019- oral 300 mg 2 completed 2 to 3 -07 28- to 3 capsule capsule three times a three day for 30 times a day(s) day Problems Problem Code CodeSystem Alternate Alternate Start End Status Narrative Name Code CodeSystem Date Date Tobacco 22083736 SNOMED-CT 2018-05 Active use -26 Tobacco 80338680 SNOMED-CT 2018-05 Active use -26 Cannabis 0550699 SNOMED-CT 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, 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 Panic [id number] SNOMED-CT 2018-05 Active disorder -22 Panic [id number] SNOMED-CT 2018-05 Active disorder -22 Cocaine 5932318 SNOMED-CT 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, 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 Cannabis 1308819 SNOMED-CT 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, 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 Cocaine 9410547 SNOMED-CT 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, 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 Relevant diagnostic tests/laboratory data Narrative No Information Procedures Procedure Code CodeSystem Target Date of Status Service Device Device Device Name Site Procedure Delivery Code Name UID Location Psychotherap [id number] SNOMED-CT () 2018-12-26 complete Mental y, 45 04 d Health- minutes with [facility] patient [address], [id number] [phone] Psychotherap [id number] SNOMED-CT () 2018-08-16 complete Mental y, 45 04 d Health- minutes with [facility] patient [address], [phone] SNOMED-CT () 2019-01-25 complete Public d [facility], [address] [phone] Psychotherap [id number] SNOMED-CT () 2018-09-20 complete Mental y, 45 04 d Health- minutes with [facility] patient [address], [id number] [phone] SNOMED-CT () 2019-03-29 complete Public d [address], [address] [phone] SNOMED-CT () 2019-03-15 complete Public d [address], [address] [phone] SNOMED-CT () 2018-06-19 complete Mental d [address], [id number] [phone] SNOMED-CT () 2019-04-26 complete Public d [address], [address] [phone] Office or [id number] SNOMED-CT () 2018-07-26 complete Mental other 8 d Health- outpatient [facility] visit for [address], [place], established [id number] patient, [phone] which requires at least 2 of these 3 rawls components: A detailed history; A detailed examination; Medical decision making of moderate complexity. Counseling and/o SNOMED-CT () 2019-03-22 complete Public d [address], [address] [phone] SNOMED-CT () 2019-03-01 complete Public d [address], [address] [phone] SNOMED-CT () 2019-04-05 complete Public d [address], [address] [phone] Office or [id number] SNOMED-CT () 2018-07-20 complete Mental other 8 d Health- outpatient [facility] visit for [address], of an [place], established [phone] patient, [phone] which requires at least 2 of these 3 rawls components: A detailed history; A detailed examination; Medical decision making of moderate complexity. Counseling and/o Psychotherap [id number] SNOMED-CT () 2018-07-24 complete Mental y, 45 04 d Health- minutes with [facility] patient [address], [phone] Psychotherap [id number] SNOMED-CT () 2018-10-11 complete Mental y, 45 04 d Health- minutes with [facility] patient [address], [id number] [phone] SNOMED-CT () 2019-02-[address], [address] [phone] SNOMED-CT () 2019-02-[address], [address] [phone] Encounters/Encounter Diagnoses Encounter Name Encounter Diagnosis Diagnosis Diagnosis Date of Service Code Code Name CodeSystem Diagnosis Delivery Location [facility] [id number] SNOMED-CT 2018-12-26 [facility]al [facility] [address] [place] [address], [phone] Vital Signs No Information Social History Element Description Description Start End Code CodeSystem AdditionalInfo Date Date SexAssignedAtBirth Female 1980-0 F AdministrativeGender 11-14 Hospital Discharge Instructions Reason For Referral Medical Equipment FDA Assessments
[2019-05-24] MEDS ORDERED: Lidocaine 1% MPF ** 5 ML VIAL INJ ONE (10:56)
[2019-05-24] MEDS ORDERED: Tetan/Diph/Pertus SYR(Tdap)* 0.5 ML SYR(BOOSTRIX) use SYR contains LATEX IM ONE (10:56)
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
[2019-05-24 12:55] VITALS: BP 135/55
== END 2019-05-24 12:49 | disposition home or self-care (01) ==
LOC: UCEAST 09:37
DX: S61.411A Laceration without foreign body of right hand, initial encounter (principal); S61.216A Laceration without foreign body of right little finger without damage to nail, initial encounter; F17.210 Nicotine dependence, cigarettes, uncomplicated; F17.290 Nicotine dependence, other tobacco product, uncomplicated; Z23 Encounter for immunization; Z88.0 Allergy status to penicillin; Z88.1 Allergy status to other antibiotic agents; X58.XXXA Exposure to other specified factors, initial encounter; Y92.9 Unspecified place or not applicable
CPT/HCPCS: 12002; 90715; 99211; G0463